=== PATIENT | female | born 1965 | race Caucasian/White ===

== ENCOUNTER 2019-02-25 08:00 | Inpatient (IN) | payer OTHER ==
[2019-03-10 14:35] VITALS: BMI 47.2
[2019-03-11] MEDS ORDERED: DESFLURANE GAS 240 ML BOTTLE IH ONE (07:36)
[2019-03-11] MEDS ORDERED: IBUPROFEN 800 MG/8 ML IJ IVPB ONE (07:36)
[2019-03-11] MEDS ORDERED: DEXMEDETOMIDINE HCL 200 MCG/2 ML IVPB ONE (07:36)
[2019-03-11] MEDS ORDERED: LIDOCAINE HCL/PF 2% SDV 5ML VIAL ONE (07:57)
[2019-03-11] MEDS ORDERED: ceFAZolin SODIUM 1 GM VIAL ONE ×2 (07:57→17:48)
[2019-03-11] MEDS ORDERED: PROPOFOL 20 ML ONE ×3 (07:57→10:48)
[2019-03-11] MEDS ORDERED: SODIUM CHLORIDE 0.9% P/F 10 ML VIAL IJ ONE (07:57)
[2019-03-11] MEDS ORDERED: MIDAZOLAM HCL 2 MG/2 ML SINGLE DOSE VIAL ONE ×2 (07:57)
[2019-03-11] MEDS ORDERED: KETAMINE HCL 200 MG/20 ML VIAL ONE (07:57)
[2019-03-11] MEDS ORDERED: DEXAMETHASONE SOD PHOSPHATE 4 MG/1 ML VIAL ONE (07:57)
[2019-03-11] MEDS ORDERED: ONDANSETRON 4 MG/2 ML VIAL ONE (07:57)
[2019-03-11] MEDS ORDERED: ROCURONIUM BROMIDE 50 MG/5 ML SYRINGE ONE (07:57)
[2019-03-11] MEDS ORDERED: MAGNESIUM SULF 50% (8.12 MEQ/2 ML-1 GM VIAL) ONE (07:58)
[2019-03-11] MEDS ORDERED: LIDOCAINE HCL 2% (20ML MULTI-DOSE VIAL) NR ONE (08:18)
[2019-03-11] MEDS ORDERED: GENTAMICIN SO4 80 MG/2 ML VIAL ONE (08:23)
[2019-03-11] MEDS ORDERED: THROMBIN (BOVINE) 20,000 UNIT VIAL TP ONE (08:23)
[2019-03-11] MEDS ORDERED: LIDOCAINE 1%-EPI 1:100,000 30 ML MDV IJ ONE (08:23)
--- NOTE | 2019-03-11 09:05 | HP ---
History & Physical Update - History History: No Change - Physical Physical: No Change - Assessment Assessment: No Change - Plan Plan: No Change (No change since pre-op clearance with Dr Meneses on 03/04/19)
[2019-03-11] MEDS ORDERED: VANCOMYCIN 1,000 MG VIAL (RESTRICTED TO ID ONLY) ONE (09:06)
[2019-03-11] MEDS ORDERED: ceFAZolin SODIUM 1 GM VIAL IVPB ONE (09:31)
[2019-03-11] MEDS ORDERED: VANCOMYCIN 1,000 MG VIAL (RESTRICTED TO ID ONLY) IVPB ONE (09:37)
[2019-03-11] MEDS ORDERED: ONDANSETRON 4 MG/2 ML VIAL IVPUSH PRN ×2 (10:19→11:44)
[2019-03-11] MEDS ORDERED: GLYCOPYRROLATE 0.2 MG/1 ML VIAL ONE (10:51)
[2019-03-11] MEDS ORDERED: NEOSTIGMINE METHYLSULFATE 0.5 MG/1 ML - 10 ML MDV ONE (10:51)
[2019-03-11 11:03] LABS: PH,URINE >= 9.0 (5.0-8.0); URINE APPEARANCE CLEAR; URINE BILIRUBIN NEGATIVE (NEGATIVE); URINE COLOR YELLOW; URINE GLUCOSE (UA) NEGATIVE (NEGATIVE); URINE KETONE NEGATIVE (NEGATIVE); URINE LEUK ESTERASE NEGATIVE (NEGATIVE); URINE NITRITE NEGATIVE (NEGATIVE); URINE PROTEIN NEGATIVE (NEGATIVE); URINE UROBILINOGEN 0.2 mg/dL (0.2-1.0)
[2019-03-11] MEDS ORDERED: diphenhydrAMINE HCL 25 MG CAPSULE (FP) PO PRN (11:44)
[2019-03-11] MEDS ORDERED: oxyCODONE HCL 5 MG TABLET PO PRN (11:44)
[2019-03-11] MEDS ORDERED: LACTATED RINGERS SOLUTION 1,000 ML/1,000 ML INFUS.BAG IV SCH (11:45)
[2019-03-11] MEDS ORDERED: MORPHINE SULFATE 2 MG/ML VIAL IVPUSH PRN (11:50)
[2019-03-11] MEDS ORDERED: ACETAMINOPHEN 325 MG TABLET (FP) PO PRN (11:50)
--- NOTE | 2019-03-11 11:57 | OP ---
Operative Note - Note: Operative Date: 03/11/19 Pre-Operative Diagnosis: Cervical myelopathy Operation: 1. Interbody cage. 2. C5 Caudal Hemicorpectomy with resection of osteophytes and posterior longitudnal ligament. 3. C6 Rostral Hemicorpectomy with resection of Osteophytes and Posterior Logitudnal Ligament. 4. Anterior Instrumentation C5-C6. 5. Microdissection. 6. C56 Arthrodesis. 7. Local autograft. 8. Deformity correction (jehovah's witness of lordosis) Findings: as dictated Post-Operative Diagnosis: Same as Pre-op Surgeon: Trenton Casey Painting Worker: Eileen Baird Anesthesiologist/SOFTWARE DEVELOPMENT LEADER: Winston Allred Anesthesia: General, Local (20cc 1%Lidocaine w/ epi) Specimens Removed: c5-c6 disc Estimated Blood Loss (mls): 100 (ml) Drains & Tubes with Location: [place] Subcutaneous Drains, Volume Out (mls): 150 (ml clear yellow urine) Fluid Volume Replaced (mls): 900 (ml LR) Operative Report Dictated: Yes
--- NOTE | 2019-03-11 15:05 | PN ---
Progress Note, Physician Chief Complaint: patient seen and examiend in pacu drowsy Cervical myelopathy Operation: C5-C6 acdf - Current Medication List Current Medications: Active Medications Acetaminophen (Tylenol -) 650 mg PO Q6H PRN PRN Reason: FEVER Diphenhydramine HCl (Benadryl -) 25 mg PO Q6H PRN PRN Reason: FOR ITCHING Docusate Sodium (Colace -) 100 mg PO TID [facility] Fentanyl (Sublimaze Injection -) 50 mcg IVPUSH [id number] PRN PRN Reason: PAIN-PACU ORDER X 4 DOSES ONLY Ferrous Sulfate (Feosol -) 325 mg PO DAILY [facility] Folic Acid (Folic Acid -) 1 mg PO DAILY [facility] Heparin Sodium (Porcine) (Heparin -) 5,000 unit SQ TID [facility] Lactated Ringer's (Lactated Ringers Solution) 1,000 mls @ 75 mls/hr IV ASDIR REGIN[facility] Cefazolin Sodium 1 gm/ (Dextrose) 50 mls @ 100 mls/hr IVPB Q8H [facility] Stop: 03/12/19 17:29 Cefazolin Sodium 1 gm/ (Dextrose) 50 mls @ 100 mls/hr IVPB Q8H-IV [facility] Insulin Aspart (Novolog Vial Sliding Scale -) 1 vial SQ ACHS [facility]; Protocol Morphine Sulfate (Morphine Sulfate) 2 mg IVPUSH Q4H PRN PRN Reason: PAIN LEVEL 7 - 10 Ondansetron HCl (Zofran Injection) 4 mg IVPUSH Q6H PRN PRN Reason: NAUSEA Oxycodone HCl (Roxicodone -) 5 mg PO Q4H PRN PRN Reason: PAIN LEVEL 1-5 Oxycodone HCl (Roxicodone -) 10 mg PO Q4H PRN PRN Reason: PAIN LEVEL 6-10 - Objective Vital Signs: Vital Signs Temperature 98.2 F 03/11/19 13:45 Pulse Rate 91 H 03/11/19 13:45 Respiratory Rate 18 03/11/19 13:45 Blood Pressure 115/62 03/11/19 13:45 O2 Sat by Pulse Oximetry (%) 94 L 03/11/19 13:45 Constitutional: Yes: Calm Neck: Yes: Other (neck collar with drain - serosanginous drainage) Cardiovascular: Yes: Regular Rate and Rhythm, S1, S2 Respiratory: Yes: CTA Bilaterally Gastrointestinal: Yes: Normal Bowel Sounds, Soft Labs: CBC, BMP 03/11/19 07:10 Problem List - Problems (1) Cervical myelopathy Assessment/Plan: s/p C5-C6 acdf cervical spine CT ordered abx pain control dvt ppx Code(s): G95.9 - DISEASE OF SPINAL CORD, UNSPECIFIED
[2019-03-11] MEDS: DOCUSATE SODIUM 100 MG CAPSULE (FP) PO SCH ×2 (15:28→21:06)
[2019-03-11] MEDS: LACTATED RINGERS SOLUTION 1,000 ML IV SCH (15:29)
[2019-03-11] MEDS ORDERED: DEXTROSE 5%-WATER - 50 ML IVPB ONE (17:48)
[2019-03-11] MEDS: CEFAZOLIN 1 GM in DEXTROSE 5%-WATER - 50 ML IVPB SCH (17:51)
[2019-03-11] MEDS: INSULIN SLIDING SCALE (NOVOLOG) 1 VIAL SQ SCH ×2 (17:58→21:06)
[2019-03-11] MEDS: oxyCODONE HCL 5 MG TABLET PO PRN (21:04)
[2019-03-12] MEDS ORDERED: ceFAZolin SODIUM 1 GM VIAL ONE ×2 (01:01→09:10)
[2019-03-12] MEDS ORDERED: DEXTROSE 5%-WATER - 50 ML IVPB ONE ×2 (01:01→09:10)
[2019-03-12] MEDS: CEFAZOLIN 1 GM in DEXTROSE 5%-WATER - 50 ML IVPB SCH (01:13)
[2019-03-12] MEDS: DOCUSATE SODIUM 100 MG CAPSULE (FP) PO SCH ×3 (05:41→23:36)
[2019-03-12] MEDS: INSULIN SLIDING SCALE (NOVOLOG) 1 VIAL SQ SCH ×4 (07:02→23:34)
[2019-03-12 07:06] LABS: BASO % 0.1 % (0-2.0); HEMATOCRIT 36.4 % (32.4-45.2); HEMOGLOBIN 12.4 GM/dL (10.7-15.3); LYMPH % 9.2 % (8-40); MEAN CELL VOLUME 88.3 fl (80-96); MEAN PLT VOLUME 8.2 fl (7.5-11.1); MONO % 5.7 % (3.8-10.2); PLATELET COUNT 308 K/MM3 (134-434); RBC 4.12 M/mm3 (3.60-5.2); RDW 14.4 % (11.6-15.6); WHITE BLOOD COUNT 15.4 K/mm3 (4.0-10.0)
[2019-03-12] MEDS ORDERED: PT OWN MED DRAWER 7, Y5N ONE ×2 (07:07→09:06)
[2019-03-12 08:16] LABS: ALBUMIN 3.1 g/dl (3.4-5.0); BLOOD UREA NITROGEN 11.2 mg/dL (7-18); CALCIUM 8.8 mg/dL (8.5-10.1); CREATININE 0.7 mg/dL (0.55-1.3); POTASSIUM 4.4 mmol/L (3.5-5.1); TOT PROT 6.4 g/dl (6.4-8.2)
[2019-03-12] MEDS ORDERED: BENZOCAINE/MENTH/CETYLPYRD CL 1 EACH LOZENGE MM PRN (08:20)
[2019-03-12] MEDS ORDERED: BACLOFEN 10 MG TABLET (FP) PO ONE (08:20)
[2019-03-12] MEDS: FOLIC ACID 1 MG TABLET (FP) PO SCH (09:12)
[2019-03-12] MEDS: FERROUS SO4 325 MG TABLET (FP) PO SCH (09:12)
--- NOTE | 2019-03-12 09:39 | PN ---
Progress Note (short form) - Note Progress Note: POD 1, s/p C5-C6 ACDF. Pt seen and examined. Reports some neck pain/muscle spasms overnight. Tolerating clears. Has not been oob yet. Brooks remains in place. Pt requesting to go home today. Denies cp/sob, n/v/d, calf pain. Vital Signs Temp 98.2 F 03/12/19 06:00 Pulse 104 H 03/12/19 06:00 Resp 18 03/12/19 06:00 BP 113/63 03/12/19 06:00 Pulse Ox 94 L 03/11/19 13:45 Intake & Output 03/11/19 03/11/19 03/12/19 11:59 23:59 11:59 Intake Total 1150 Output Total 250 1355 1400 Balance 900 -1355 -1400 Intake: IV 1150 Output: Drainage 5 Urine 150 1350 1400 Brooks 1000 1400 Estimated Blood Loss 100 Other: Voiding Method Indwelling Catheter CBC, BMP 03/12/19 06:42 03/12/19 06:42 Gen: awake, alert, nad Neck: [place] J in place however poorly fitting due to pts anatomy (imer p2 collar). Dressing c/d/i, Farrah in place with scant serosanguinous drainage in reservoir. Tubing stripped. Resp: unlabored on RA Neuro: B/L steam hammer operator strength strong and equal, b/l biceps/triceps 5/5, silt b/l ue' s. B/L les 5/5 dorsi/plantar flexion. SILT b/l les A/P: 53 y/o F w/ PMHx IDDM, cervical myelopathy now POD 1, s/p C5-C6 ACDF. afebrile, vss UA negative (preop with large leukocytes) Neuro exam stable FARRAH output 5ml overnight -Remove brooks this AM (RN aware) f/u TOV -OOb with PT -May advance to soft diet -DVT prophylaxis with Heparin 5000 units sq tid, scds -Pain control with Oxy 5/10mg q4hrs prn, acetaminophen 650mg q6hrs prn, Morphine 2mg IV q4hrs prn btp -Will remove drain this am -VS, neuro checks per routine -Baclofen 5mg x 1 dose ordered prn -Spoke with loading unit operator will call store room for mentasta J p1 collar vs soft collar -Plan for d/c later today pending PT, void, pain control d/w attending Dr Bassett
[2019-03-12] MEDS ORDERED: CEFAZOLIN 1 GM in DEXTROSE 5%-WATER - 50 ML IVPB SCH (10:00)
--- NOTE | 2019-03-12 11:26 | PN ---
Progress Note, Physician - Current Medication List Current Medications: Active Medications Acetaminophen (Tylenol -) 650 mg PO Q6H PRN PRN Reason: FEVER Benzocaine/Menthol (Cepacol Lozenge -) 1 each MM PRN PRN PRN Reason: SORE THROAT Diphenhydramine HCl (Benadryl -) 25 mg PO Q6H PRN PRN Reason: FOR ITCHING Docusate Sodium (Colace -) 100 mg PO TID [facility] Last Admin: 03/12/19 05:41 Dose: 100 mg Fentanyl (Sublimaze Injection -) 50 mcg IVPUSH [id number] PRN PRN Reason: PAIN-PACU ORDER X 4 DOSES ONLY Ferrous Sulfate (Feosol -) 325 mg PO DAILY [facility] Last Admin: 03/12/19 09:12 Dose: 325 mg Folic Acid (Folic Acid -) 1 mg PO DAILY [facility] Last Admin: 03/12/19 09:12 Dose: 1 mg Heparin Sodium (Porcine) (Heparin -) 5,000 unit SQ TID [facility] Lactated Ringer's (Lactated Ringers Solution) 1,000 mls @ 75 mls/hr IV ASDIR [facility] Last Admin: 03/11/19 15:29 Dose: 75 mls/hr Cefazolin Sodium 1 gm/ (Dextrose) 50 mls @ 100 mls/hr IVPB Q8H-IV [facility] Last Admin: 03/12/19 09:13 Dose: 100 mls/hr Insulin Aspart (Novolog Vial Sliding Scale -) 1 vial SQ ACHS [facility]; Protocol Last Admin: 03/12/19 07:02 Dose: 4 units Morphine Sulfate (Morphine Sulfate) 2 mg IVPUSH Q4H PRN PRN Reason: PAIN LEVEL 7 - 10 Last Admin: 03/11/19 15:33 Dose: 2 mg Ondansetron HCl (Zofran Injection) 4 mg IVPUSH Q6H PRN PRN Reason: NAUSEA Oxycodone HCl (Roxicodone -) 5 mg PO Q4H PRN PRN Reason: PAIN LEVEL 1-5 Oxycodone HCl (Roxicodone -) 10 mg PO Q4H PRN PRN Reason: PAIN LEVEL 6-10 Last Admin: 03/11/19 21:04 Dose: 10 mg - Objective Vital Signs: Vital Signs Temperature 98.3 F 03/12/19 08:45 Pulse Rate 92 H 07/26/19 08:45 Respiratory Rate 18 03/12/19 08:45 Blood Pressure 125/70 03/12/19 08:45 O2 Sat by Pulse Oximetry (%) 94 L 03/11/19 13:45 Cardiovascular: Yes: Regular Rate and Rhythm Respiratory: Yes: Regular, CTA Bilaterally Gastrointestinal: Yes: Normal Bowel Sounds, Soft Wound/Incision: Yes: Dressing Dry and Intact, Other (drain in palce) Labs: CBC, BMP 03/12/19 06:42 03/12/19 06:42 Problem List - Problems (1) Cervical myelopathy Assessment/Plan: s/p C5-C6 acdf cervical spine CT abx pain control dvt ppx Code(s): G95.9 - DISEASE OF SPINAL CORD, UNSPECIFIED (2) Diabetes Assessment/Plan: -monitor blood sugars insulin Code(s): E11.9 - TYPE 2 DIABETES MELLITUS WITHOUT COMPLICATIONS (3) Leukocytosis Assessment/Plan: maybe reactive follow trends Code(s): D72.829 - ELEVATED WHITE BLOOD CELL COUNT, UNSPECIFIED
[2019-03-12] MEDS: LACTATED RINGERS SOLUTION 1,000 ML IV SCH (13:10)
[2019-03-12] MEDS: HEPARIN NA (PORCINE) 5,000 UNITS/ML 1ML VIAL SQ SCH ×2 (13:36→23:36)
[2019-03-12] MEDS: BACITRACIN 15 GM TUBE TOPICAL OINTMENT TP SCH (15:33)
[2019-03-12] MEDS ORDERED: INSULIN (NOVOLOG) ASPART 100 UNITS/ML 10ML VIAL ONE (18:01)
[2019-03-12] MEDS: oxyCODONE HCL 5 MG TABLET PO PRN (20:46)
[2019-03-13] MEDS: HEPARIN NA (PORCINE) 5,000 UNITS/ML 1ML VIAL SQ SCH (06:48)
[2019-03-13] MEDS: DOCUSATE SODIUM 100 MG CAPSULE (FP) PO SCH (06:48)
[2019-03-13] MEDS: INSULIN SLIDING SCALE (NOVOLOG) 1 VIAL SQ SCH (06:50)
[2019-03-13 07:04] LABS: BASO % 0.2 % (0-2.0); EOS % 0.3 % (0-4.5); HEMATOCRIT 36.2 % (32.4-45.2); HEMOGLOBIN 12.4 GM/dL (10.7-15.3); LYMPH % 22.2 % (8-40); MCHC 34.2 g/dl (32.0-36.0); MEAN CELL VOLUME 87.8 fl (80-96); MEAN PLT VOLUME 8.4 fl (7.5-11.1); NEUT % 69.3 % (42.8-82.8); PLATELET COUNT 294 K/MM3 (134-434); RBC 4.12 M/mm3 (3.60-5.2); RDW 14.4 % (11.6-15.6); WHITE BLOOD COUNT 11.6 K/mm3 (4.0-10.0)
[2019-03-13 07:39] LABS: ALBUMIN 3.3 g/dl (3.4-5.0); BILIRUBIN,TOTAL 0.8 mg/dL (0.2-1); BLOOD UREA NITROGEN 9.6 mg/dL (7-18); CALCIUM 8.6 mg/dL (8.5-10.1); CREATININE 0.6 mg/dL (0.55-1.3); POTASSIUM 3.6 mmol/L (3.5-5.1); TOT PROT 6.5 g/dl (6.4-8.2)
[2019-03-13] MEDS: FERROUS SO4 325 MG TABLET (FP) PO SCH (09:36)
[2019-03-13] MEDS: FOLIC ACID 1 MG TABLET (FP) PO SCH (09:36)
[2019-03-13] MEDS: BACITRACIN 15 GM TUBE TOPICAL OINTMENT TP SCH (09:37)
--- NOTE | 2019-03-13 10:56 | DS ---
"Physical Examination Vital Signs: Vital Signs Temperature 99.4 F 03/13/19 06:00 Pulse Rate 96 H 03/13/19 06:00 Respiratory Rate 20 03/13/19 06:00 Blood Pressure 122/65 03/13/19 06:00 O2 Sat by Pulse Oximetry (%) 95 03/12/19 21:00 Cardiovascular: Yes: Regular Rate and Rhythm Respiratory: Yes: Regular, CTA Bilaterally Gastrointestinal: Yes: Normal Bowel Sounds, Soft Labs: CBC, BMP 03/13/19 06:33 03/13/19 06:33 Discharge Summary Reason For Visit: C5-6 SPONDYLOSIS Current Active Problems Cervical myelopathy (Acute) Diabetes (Acute) Leukocytosis (Acute) Hospital Course: - Problems (1) Cervical myelopathy Assessment/Plan: s/p C5-C6 acdf cervical spine CT abx pain control dvt ppx Code(s): G95.9 - DISEASE OF SPINAL CORD, UNSPECIFIED (2) Diabetes Assessment/Plan: -monitor blood sugars insulin Code(s): E11.9 - TYPE 2 DIABETES MELLITUS WITHOUT COMPLICATIONS (3) Leukocytosis Assessment/Plan: maybe reactive--now 11 follow trends Code(s): D72.829 - ELEVATED WHITE BLOOD CELL COUNT, UNSPECIFIED Condition: Stable - Instructions Diet, Activity, Other Instructions: Post Operative Instructions Physical Activity Resume your normal everyday activity as tolerated. No heavy lifting or exercise until seen by your surgeon. You may walk unlimited amounts and climb stairs. You may resume driving the car when you feel safe and comfortable behind the wheel and you are no longer wearing your brace. Do not operate a vehicle while taking narcotic medication. Brace If you had neck surgery, wear surgical collar 23 hr/day. Remove to shower only. Wound Care Keep your incision clean, dry and covered at all times. Apply an occlusive dressing (Saran wrap or Tegaderm) when showering to avoid getting your incision wet. Do not submerge incision or apply ointments or creams. The meg will be removed in the office in 10-14 days post-op. Diet There are no dietary restrictions. Eat healthy, high-fiber foods. Drink 6-8 glasses of liquid each day. This will assist in keeping your bowels regular. Pain Management You may take Tylenol or acetaminophen. Any pain prescription medication ordered should be taken as prescribed for moderate to severe pain. Avoid any ibuprofen (Motrin, Advil, Aleve, Toradol, etc) for 3 months unless otherwise discussed with your surgeon. Call Dr Deluna for any of the following: Severe pain not relieved by medication Fever of 101 or higher Excessive bleeding or drainage on dressing Inability to urinate Any chest pain or shortness of breath, seek Emergency Care. Call the office to confirm a post-operative appointment for 2-3 weeks post-op Trenton Casey MD [facility] [address] [place] [address] This report was requested by: Mary Ann Almendarez | Reference #: [id number] Disposition: HOME - Home Medications Comprehensive Discharge Medication List: Ambulatory Orders Insulin (Novolog 70/30) [Novolog Mix 70/30 Vial -] 35 unit SQ BID 03/10/19 Bacitracin - [Bacitracin Topical Ointment -] 1 applic TP DAILY 10 Days #1 applic 03/12/19 Bacitracin - [Bacitracin Topical Ointment -] 1 applic TP DAILY tube 03/13/19 Docusate Sodium [Colace] 100 mg PO BID #20 capsule 03/13/19 Oxycodone HCl/Acetaminophen [Percocet 5-325 mg Tablet] 1 - 2 tab PO Q8H PRN #50 tab MDD 6 03/13/19"
[2019-03-13 12:53] VITALS: BP 147/71; PULSE 116; TEMP 98.7
--- NOTE | 2019-03-15 09:31 | SURG ---
Surgery Wrapper Opener Note Wrapper Opener: Eileen Baird PA-C (Suzy) Date of Service: 03/11/19 Diagnosis: Cervical Spondylotic Myelopathy Procedure: 1. Interbody cage 2. C5 Caudal Hemicorpectomy with resection of osteophytes and posterior longitudnal ligament 3. C6 Rostral Hemicorpectomy with resection of Osteophytes and Posterior Logitudnal Ligament 4. Anterior Instrumentation C5-C6 5. Microdissection 6. C56 Arthrodesis 7. Local autograft 8. Deformity correction (synagogue of lordosis) I was present for the entirety of the operative procedure. For further detail, please refer to operative report. Visit type - Case Type Case Type: Scheduled - Emergency Emergency Visit: No - New patient This patient is new to me today: Yes Date on this admission: 03/15/19 - Critical Care Critical Care patient: No
== END 2019-03-13 12:59 | disposition home or self-care (01) | DRG 23 ==
LOC: JSAMEDAYSX 03-11 06:55 → J8W 03-11 14:28
PROVIDERS: ADMIT Neurological Surgery; ATTEND Family Medicine
PROC: 0RG10A0 Fusion of Cervical Vertebral Joint with Interbody Fusion Device, Anterior Approach, Anterior Column, Open Approach (ICD-10-PCS; 2019-03-11)
PROC: 0RG1071 Fusion of Cervical Vertebral Joint with Autologous Tissue Substitute, Posterior Approach, Posterior Column, Open Approach (ICD-10-PCS; 2019-03-11)
PROC: B01BZZZ Fluoroscopy of Spinal Cord (ICD-10-PCS; 2019-03-11)
PROC: 0PB30ZZ Excision of Cervical Vertebra, Open Approach (ICD-10-PCS; principal; 2019-03-11 09:00)
DX: G95.9 Disease of spinal cord, unspecified (principal); E11.9 Type 2 diabetes mellitus without complications; D72.829 Elevated white blood cell count, unspecified
CPT/HCPCS: 36415; 72125-TC; 76000-TC-FY; 80048; 80053; 81003; 82947; 82962; 83036; 84703; 85025; 86850; 86900; 86901; 87086; 94760; 97116-GP; 97161-GP; J0475; J1644

== ENCOUNTER 2019-06-09 11:06 | Day surgery (SDC) | payer OTHER ==
[2019-06-08 16:33] VITALS: BMI 46.2
[2019-06-09 12:47] VITALS: TEMP 98.2
[2019-06-09 13:12] VITALS: BP 128/72; PULSE 80
--- NOTE | 2019-06-11 14:19 | PATH ---
Surgical Pathology Report Patient Name: AMIRAH GARRETT [facility]. Rec. #: [id number] /Age/Gender: 1965 (Age: 54) / F Account: [id number] Location: [facility] Taken: 06/09/2019 Received: 06/09/2019 Reported: 06/11/2019 Physicians: Patty Guerra M.D. Specimen(s) Received A: SECOND PORTION DUODENUM B: ANTRUM C: GE JUNCTION D: MID ESOPHAGUS Clinical History Dyspepsia, dysphagia Postoperative diagnosis: Gastritis, hiatal hernia Final Diagnosis A. SECOND PORTION OF DUODENUM, BIOPSY: DUODENUM MUCOSA WITH MILD NONSPECIFIC CHRONIC DUODENITIS. B. GASTRIC ANTRUM, BIOPSY: GASTRIC MUCOSA WITH ACTIVE CHRONIC GASTRITIS. IMMUNOSTAIN FOR H. PYLORI IS POSITIVE. NEGATIVE FOR INTESTINAL METAPLASIA. C. GE JUNCTION, BIOPSY: GASTROESOPHAGEAL JUNCTIONAL MUCOSA WITH REFLUX ESOPHAGITIS. NEGATIVE FOR INTESTINAL METAPLASIA. D. MID ESOPHAGUS, BIOPSY: ESOPHAGEAL MUCOSA WITH NO SIGNIFICANT PATHOLOGIC CHANGE. NO HISTOLOGIC EVIDENCE OF EOSINOPHILIC ESOPHAGITIS. Electronically Signed Jagruti Poole M.D. Gross Description A. Received in formalin, labeled "biopsy second portion of duodenum" is a molina, irregular portion of soft tissue measuring 0.4 cm. in greatest dimension. The specimen is submitted in toto in one cassette. B. Received in formalin, labeled "biopsy gastric antrum" is a molina, irregular portion of soft tissue measuring 0.3 cm. in greatest dimension. The specimen is submitted in toto in one cassette. C. Received in formalin, labeled "biopsy GE junction" are 2 molina, irregular portions of soft tissue measuring 0.4 and 0.5 cm. in greatest dimension. The specimens are submitted in toto in one cassette. D. Received in formalin, labeled "biopsy midesophagus" are 2 molina, irregular portions of soft tissue measuring 0.1 and 0.4 cm. in greatest dimension. The specimens are submitted in toto in one cassette. 06/10/2019 saudi06/10/2019
== END 2019-06-09 13:10 | disposition home or self-care (01) ==
LOC: FASU-ENDO 11:06
PROVIDERS: ATTEND Internal Medicine Gastroenterology
PROC: 0DB78ZX Excision of Stomach, Pylorus, Via Natural or Artificial Opening Endoscopic, Diagnostic (ICD-10-PCS; 2019-06-09)
PROC: 0DB48ZX Excision of Esophagogastric Junction, Via Natural or Artificial Opening Endoscopic, Diagnostic (ICD-10-PCS; 2019-06-09)
PROC: 0DB98ZX Excision of Duodenum, Via Natural or Artificial Opening Endoscopic, Diagnostic (ICD-10-PCS; principal; 2019-06-09 12:25)
DX: K29.50 Unspecified chronic gastritis without bleeding (principal); K21.0 Gastro-esophageal reflux disease with esophagitis; K29.80 Duodenitis without bleeding; B96.81 Helicobacter pylori [H. pylori] as the cause of diseases classified elsewhere; K44.9 Diaphragmatic hernia without obstruction or gangrene; R13.10 Dysphagia, unspecified; R10.13 Epigastric pain
CPT/HCPCS: 82962; 88305-TC; 88342-TC

== ENCOUNTER 2019-06-16 08:54 | Day surgery (SDC) | payer OTHER ==
[2019-06-16 09:18] VITALS: TEMP 97.9; BMI 46.2
[2019-06-16] MEDS ORDERED: PROPOFOL 20 ML ONE ×2 (10:03)
[2019-06-16 11:12] VITALS: BP 101/63; PULSE 82
== END 2019-06-16 11:15 | disposition home or self-care (01) ==
LOC: FASU-ENDO 08:54
PROVIDERS: ATTEND Internal Medicine Gastroenterology
PROC: 0DJD8ZZ Inspection of Lower Intestinal Tract, Via Natural or Artificial Opening Endoscopic (ICD-10-PCS; principal; 2019-06-16 10:17)
DX: Z12.11 Encounter for screening for malignant neoplasm of colon (principal); K64.1 Second degree hemorrhoids
CPT/HCPCS: 82962

== ENCOUNTER 2023-09-12 07:35 | Emergency (ER) | payer OTHER ==
[2023-09-12 07:45] VITALS: BP 126/49; PULSE 77; RESP 18; TEMP 98.1; BMI 39.4
[2023-09-12] MEDS ORDERED: IBUPROFEN 600 MG TABLET (FP) PO ONE ×2 (08:48→08:55)
== END 2023-09-12 09:03 | disposition home or self-care (01) ==
LOC: JER 07:35 → JERFT 07:35
DX: S92.531A Displaced fracture of distal phalanx of right lesser toe(s), initial encounter for closed fracture (principal); W22.8XXA Striking against or struck by other objects, initial encounter; Y92.9 Unspecified place or not applicable
CPT/HCPCS: 73630-TC-RT-FY; 99283-25

== ENCOUNTER 2024-03-07 08:37 | Emergency (ER) | payer OTHER ==
[2024-03-07 08:44] VITALS: BP 120/74; PULSE 94; RESP 18; TEMP 99; BMI 35.9
== END 2024-03-07 09:48 | disposition home or self-care (01) ==
LOC: JERFT 08:37
DX: U07.1 COVID-19 (principal); B30.9 Viral conjunctivitis, unspecified; R09.81 Nasal congestion; M79.10 Myalgia, unspecified site
CPT/HCPCS: 99283-25